=== PATIENT | male | born 1985 | race Caucasian/White ===

== ENCOUNTER 2019-08-31 14:10 | Emergency (ER) | payer OTHER, SELFPAY ==
[~2019-08-31] VITALS: Ht 170.2 cm; Wt 127.0 kg
[2019-08-31 14:12] VITALS: Ht 170.2 cm; Wt 127.0 kg
[2019-08-31 15:48] LABS: BASOPHIL % 1.4 % (0-2); PLATELET COUNT 259 x10^3mcL (130-400); RED CELL DISTRIBUTION WIDTH 13.2 % (11.5-14.5)
[2019-08-31 16:12] LABS: CALCIUM 8.8 mg/dL (8.5-10.1); CARBON DIOXIDE 31.2 mmol/L (21-32); CHLORIDE SERUM 105 mmol/L (98-107); GFR1 > 60 mL/min; GLUCOSE SERUM 92 mg/dL (74-106); POTASSIUM SERUM 4.5 mmol/L (3.5-5.1); SODIUM SERUM 141 mmol/L (136-145)
[2019-08-31 16:21] LABS: ALBUMIN 3.5 g/dL (3.4-5.0); ALKALINE PHOSPHATASE 62 U/L (46-116); ALT/SGPT 27 U/L (16-63); AST/SGOT 12 U/L (15-37); LIPASE 84 IU/L (73-393); TOTAL PROTEIN, SERUM 6.8 g/dL (6.4-8.2)
[2019-08-31 16:24] LABS: CHOLESTEROL 252 mg/dL (<200); HDL CHOLESTEROL 71 mg/dL (40-60)
[2019-08-31 19:02] VITALS: BP 129/74
== END 2019-08-31 19:02 | disposition home or self-care (01) ==
LOC: ED 14:10
PROVIDERS: Emergency Medicine
DX: J10.1 Influenza due to other identified influenza virus with other respiratory manifestations (principal); F90.9 Attention-deficit hyperactivity disorder, unspecified type; F32.9 Major depressive disorder, single episode, unspecified; E66.01 Morbid (severe) obesity due to excess calories; Z68.41 Body mass index [BMI] 40.0-44.9, adult; Z20.828 Contact with and (suspected) exposure to other viral communicable diseases
CPT/HCPCS: 83880; 87804; J7030; Q0092; Q9967; U0003-CS